=== PATIENT | male | born 1995 ===

== ENCOUNTER 2018-09-29 08:44 | Outpatient (CLI) | payer OTHER ==
[~2018-09-29] VITALS: Ht 172.7 cm; Wt 74.8 kg
== END 2018-09-29 09:00 | disposition home or self-care (01) ==
LOC: OFIC 805 08:44
DX: H61.23 Impacted cerumen, bilateral (principal); R09.81 Nasal congestion; H81.49 Vertigo of central origin, unspecified ear; J30.89 Other allergic rhinitis